=== PATIENT | male | born 1980 | race Caucasian/White ===

== ENCOUNTER 2018-04-21 08:56 | Emergency (ER) | payer OTHER ==
[~2018-04-21] VITALS: Ht 175.3 cm; Wt 91.2 kg
[~2018-04-21 08:56] MED LIST: DARVOCET-N 1001 EACH PO; FLEXERIL PO; LORTAB 5 MG/5001 TA1 PO; NOHOMEMEDICATIONS; NORCO 5-325 TA1 EACH PO
[2018-04-21] MEDS ORDERED: CELEXA 20 MG TA20 MG PO (09:03)
[2018-04-21] MEDS ORDERED: TRAMADOL 50 MG50 MG PO (10:06)
[2018-04-21] MEDS ORDERED: NAPROSYN500 MG PO (10:06)
[2018-04-21 10:29] VITALS: BP 125/69
== END 2018-04-21 11:05 | disposition home or self-care (01) ==
LOC: ER 08:56
DX: S16.1XXA Strain of muscle, fascia and tendon at neck level, initial encounter (principal); S09.8XXA Other specified injuries of head, initial encounter; F17.210 Nicotine dependence, cigarettes, uncomplicated; Z90.49 Acquired absence of other specified parts of digestive tract; W00.0XXA Fall on same level due to ice and snow, initial encounter; Y93.89 Activity, other specified; Y92.218 Other school as the place of occurrence of the external cause; Y99.8 Other external cause status